=== PATIENT | male | born 1970 | race Caucasian/White ===

== ENCOUNTER 2024-10-07 13:44 | Emergency (ER) | payer OTHER ==
[~2024-10-07] VITALS: Ht 180.3 cm; Wt 88.5 kg
[2024-10-07] MEDS ORDERED: KETOROLAC TROMETHAMINE 15 MG INJ ONE (14:31)
[2024-10-07] MEDS ORDERED: METOCLOPRAMIDE HCL 10 MG/2 ML VIAL ONE (14:31)
[2024-10-07 14:49] LABS: BASOPHILS # (AUTO) 0.1 K/UL (0.0-0.2); BASOPHILS % (AUTO) 1.2 % (0.0-2.0); EOSINOPHILS % (AUTO) 0.1 % (0.0-7.0); HEMATOCRIT 41.5 % (36.7-47.1); HEMOGLOBIN 13.8 g/dL (12.5-16.3); LYMPHOCYTES % (AUTO) 18.9 % (20.5-51.5); MEAN CORPUSCULAR HEMOGLOBIN 30.9 uug (23.8-33.4); MEAN CORPUSCULAR HGB CONC 33 g/dL (32.5-36.3); MEAN CORPUSCULAR VOLUME 92.8 fL (73.0-96.2); MONOCYTES # (AUTO) 0.7 K/uL (0.1-1.30); MONOCYTES % (AUTO) 12.8 % (0.0-11.0); NEUTROPHILS # (AUTO) 3.5 K/uL (1.8-8.9); PLATELET COUNT (AUTO) 124 K/uL (152-348); RED BLOOD CELL COUNT(AUTO) 4.47 MIL/uL (4.06-5.63); RED CELL DISTRIBUTION WIDTH 14.3 % (12.1-16.2); WHITE BLOOD COUNT (AUTO) 5.2 K/uL (3.6-10.2)
[2024-10-07 14:51] LABS: DIFFERENTIAL COMMENT 1
[2024-10-07] MEDS: KETOROLAC TROMETHAMINE 15 MG INJ IVP ONE (14:55)
[2024-10-07] MEDS: METOCLOPRAMIDE HCL 10 MG/2 ML VIAL IV ONE (14:55)
[2024-10-07 15:00] LABS: CALCIUM 9.4 mg/dL (8.5-10.1); CARBON DIOXIDE 27 mmol/L (21-32); CHLORIDE 92 mmol/L (98-107); GLUCOSE 116 mg/dL (74-106); POTASSIUM 3.5 mmol/L (3.5-5.1); SODIUM SERUM 136 mmol/L (136-145); UREA NITROGEN, BLOOD 13 mg/dL (7-18)
[2024-10-07 15:08] LABS: ALANINE AMINOTRANSFERASE 202 U/L (16-63); ALBUMIN 4.2 g/dL (3.4-5.0); ALKALINE PHOSPHATASE 173 U/L (50-136); ASPARTATE AMINOTRANSFERASE 281 U/L (15-37); BILIRUBIN,DIRECT 0.7 mg/dL (0.0-0.2); BILIRUBIN,TOTAL 2.5 mg/dL (0.2-1.0); LIPASE 152 U/L (16-77); TOTAL PROTEIN, SERUM 8.7 g/dL (6.4-8.2)
[2024-10-07] MEDS ORDERED: MULT-594 PO (15:27)
[2024-10-07] MEDS ORDERED: BENZ5.1G (15:27)
[2024-10-07] MEDS ORDERED: OMEG10006 PO (15:27)
[2024-10-07] MEDS ORDERED: SENN8.6T19 PO (15:27)
[2024-10-07] MEDS ORDERED: OXYC5CAP18 PO (15:27)
[2024-10-07] MEDS ORDERED: ACET-2605 PO (15:27)
[2024-10-07] MEDS ORDERED: FOLI1TAB27 PO (15:27)
[2024-10-07] MEDS ORDERED: LIDOCAINE 4% PATCH TOP (15:27)
[2024-10-07] MEDS ORDERED: GABA300C PO (15:27)
[2024-10-07] MEDS ORDERED: DOCU100C36 PO (15:27)
[2024-10-07] MEDS ORDERED: ASCO-495 PO (15:27)
[2024-10-07] MEDS ORDERED: THIA50TA10 PO (15:27)
[2024-10-07] MEDS ORDERED: CHOL10005 PO (15:27)
[2024-10-07] MEDS ORDERED: DICL100G31 TP (15:27)
[2024-10-07] MEDS ORDERED: ATOR20TA PO (15:27)
[2024-10-07] MEDS ORDERED: OMEP20CA15 PO (15:27)
[2024-10-07] MEDS ORDERED: IBUP-1957 PO (15:58)
[2024-10-07] MEDS ORDERED: METO-295 PO (15:58)
[2024-10-07 17:31] VITALS: BP 115/81; TEMP 98; O2SAT 100
== END 2024-10-07 17:31 | disposition home or self-care (01) ==
LOC: ER 13:44
DX: K75.9 Inflammatory liver disease, unspecified (principal); R10.13 Epigastric pain; M25.552 Pain in left hip; R06.00 Dyspnea, unspecified; E78.5 Hyperlipidemia, unspecified; K21.9 Gastro-esophageal reflux disease without esophagitis; N40.0 Benign prostatic hyperplasia without lower urinary tract symptoms; Z79.899 Other long term (current) drug therapy
CPT/HCPCS: 99285; 74176; 96374; 71045; 96375; 80076; 80048; 83690; 85025; 85730; 84484; 36415; 93005; J1885; J2765; A4606; A4663